=== PATIENT | female | born 1950 | race Caucasian/White ===

== ENCOUNTER 2017-04-07 10:18 | Emergency (ER) | payer MEDICARE, OTHER, SELFPAY ==
[~2017-04-07] VITALS: Ht 160 cm; Wt 81.8 kg
[2017-04-07 10:19] VITALS: BP 139/85
[2017-04-07] MEDS ORDERED: HYDR-3363 PO (10:34)
[2017-04-07] MEDS ORDERED: SIMV40TA2 PO (10:34)
[2017-04-07] MEDS ORDERED: VENL75CA2 PO (10:34)
[2017-04-07] MEDS ORDERED: ROBA500T PO ×2 (11:00→11:05)
[2017-04-07] MEDS ORDERED: METHOCARBAMOL 500 MG TAB PO ONE (11:00)
== END 2017-04-07 11:22 | disposition home or self-care (01) ==
LOC: M ED 10:18
DX: M62.830 Muscle spasm of back (principal); E78.00 Pure hypercholesterolemia, unspecified; F41.9 Anxiety disorder, unspecified; E04.1 Nontoxic single thyroid nodule; Z79.899 Other long term (current) drug therapy; F17.210 Nicotine dependence, cigarettes, uncomplicated